=== PATIENT | male | born 1990 | race Caucasian/White ===

== ENCOUNTER 2016-04-12 15:00 | Inpatient (IN) | payer OTHER ==
[2016-04-12 18:59] VITALS: BMI 19.5
--- NOTE | 2016-04-12 18:59 | HP ---
COWS - Scale Resting Pulse: 1= [place] 81-100 Sweatin= Chills/Flushing Restless Observation: 3= Extraneous Movement Pupil Size: 0= Normal to Room Light Bone or Joint Aches: 2= Severe Diffuse Aches Runny Nose/ Eye Tearin= Runny Nose/Eyes GI Upset > 30mins: 3= Vomiting/Diarrhea Tremor Observation: 2= Slight Tremor Visible Yawning Observation: 0= None Anxiety or Irritability: 2=Irritable/Anxious Goose Flesh Skin: 0=Smooth Skin COWS Score: 16 Admission [facility] Chief Complaint: withdrawal sx Allergies/Adverse Reactions: Allergies Allergy/AdvReac Type Severity Reaction Status Date / Time No Known Allergies Allergy Verified 04/12/16 19:06 History of Present Illness: 25 years old male with long history of heroin nicotine dependence, denies medical issue has anxiety is admitted to detox Exam Limitations: No Limitations - Ebola screening Have you traveled outside of the country in the last 21 days: No Have you had contact with anyone from an Ebola affected area: No Do you have a fever: No - Review of Systems Constitutional: Chills, Loss of Appetite, Changes in sleep, Unexplained wgt Loss EENT: reports: No Symptoms Reported Respiratory: reports: No Symptoms reported Cardiac: reports: No Symptoms Reported GI: reports: Nausea, Poor Appetite, Poor Fluid Intake, Vomiting, Indigestion, Abdominal cramping : reports: No Symptoms Reported Musculoskeletal: reports: Back Pain, Joint Pain, Muscle Pain, Neck Pain Integumentary: reports: No Symptoms Reported Neuro: reports: Tremors Endocrine: reports: No Symptoms Reported Hematology: reports: No Symptoms Reported Psychiatric: reports: Judgement Intact, Orientated x3, Anxious, Depressed Other Systems: Reviewed and Negative Patient History - Patient Medical History Hx Anemia: No Hx Asthma: No Hx Chronic Obstructive Pulmonary Disease (COPD): No Hx Cancer: No Hx Cardiac Disorders: No Hx Congestive Heart Failure: No Hx Hypertension: No Hx Hypercholesterolemia: No Hx Pacemaker: No HX Cerebrovascular Accident: No Hx Seizures: No Hx Dementia: No Hx Diabetes: No Hx Gastrointestinal Disorders: Yes (gerd - protonix) Hx Liver Disease: No Hx Genitourinary Disorders: No Hx Sexually Transmitted Disorders: No Hx Renal Disease (ESRD): No Hx Thyroid Disease: No Hx Human Immunodeficiency Virus (HIV): No (LAST 11/16 NEGATIVE) Hx Hepatitis C: No Hx Depression: Yes (ANXTIETY) Hx Suicide Attempt: No Hx Bipolar Disorder: No Hx Schizophrenia: No - Patient Surgical History Past Surgical History: Yes Hx Neurologic Surgery: No Hx Cataract Extraction: No Hx Cardiac Surgery: No Hx Lung Surgery: No Hx Breast Surgery: No Hx Breast Biopsy: No Hx Abdominal Surgery: No Hx Appendectomy: No Hx Cholecystectomy: No Hx Genitourinary Surgery: No Hx Orthopedic Surgery: Yes (fx of L elbow 2014) Anesthesia Reaction: No - PPD History Previous Implant?: Yes Documented Results: Negative w/proof Implanted On Prior R Admission?: Yes Date: 04/04/15 Results: negative PPD to be Administered?: Yes - Smoking Cessation Smoking history: Current every day smoker Have you smoked in the past 12 months: Yes Aproximately how many cigarettes per day: 20 Cigars Per Day: 0 Hx Chewing Tobacco Use: No Initiated information on smoking cessation: Yes 'Breaking Loose' booklet given: 04/12/16 - Substance & Tx. History Hx Alcohol Use: No Hx Substance Use: Yes Substance Use Type: Heroin, Opiates Hx Substance Use Treatment: Yes - Substances Abused Heroin Route: Inhalation Frequency: Daily Amount used: 40 bags Age of first use: 18 Date of Last Use: 04/11/16 Family Disease History - Family Disease History Family History: Denies (adopted) Admission Physical Exam [facility] - Physical General Appearance: Yes: Appropriately Dressed, Moderate Distress, Thin, Tremorous, Irritable, Sweating, Anxious HEENTM: Yes: Hearing grossly Normal, Normal ENT Inspection, Normocephalic, Normal Voice Respiratory: Yes: Chest Non-Tender, Lungs Clear, Normal Breath Sounds, No Respiratory Distress, No Accessory Muscle Use Neck: Yes: Supple, Trachea in good position Breast: Yes: Breasts Symetrical Cardiology: Yes: Regular Rhythm, Regular Rate, S1, S2 Abdominal: Yes: Non Tender, Soft Genitourinary: Yes: Within Normal Limits Back: Yes: Normal Inspection Musculoskeletal: Yes: full range of Motion, Gait Steady, Back pain, Muscle Pain Extremities: Yes: Normal Inspection, Normal Range of Motion, Non-Tender, Tremors Neurological: Yes: Fully Oriented, Alert, Motor Strength 5/5, Normal Response, Depressed Affect Integumentary: Yes: Warm, Cl[place] Lymphatic: Yes: Within Normal Limits - Diagnostic (1) Nicotine dependence Current Visit: Yes Status: Acute Qualifiers: Nicotine product type: cigarettes Substance use status: uncomplicated Qualified Code(s): F17.210 - Nicotine dependence, cigarettes, uncomplicated (2) Opioid dependence with withdrawal Current Visit: Yes Status: Acute (3) GERD (gastroesophageal reflux disease) Current Visit: Yes Status: Acute Qualifiers: Esophagitis presence: without esophagitis Qualified Code(s): K21.9 - Gastro-esophageal reflux disease without esophagitis (4) Weight loss Current Visit: Yes Status: Acute (5) Depression Current Visit: Yes Status: Suspected Qualifiers: Depression Type: dysthymia Qualified Code(s): F34.1 - Dysthymic disorder Cleared for Admission [facility] - Detox or Rehab [facility] Level of Care: Medically Managed Detox Regimen/Protocol: Methadone [facility] Breath Alcohol Content Breath Alcohol Content: 0 Vital Signs - Vital Signs Vital Signs Refused: No Temperature: 96.9 F Temperature Source: Oral Pulse Rate: 87 Respiratory Rate: 18 Blood Pressure: 140/98 BP Location: Left Arm - Height Height: 6 ft 3 in - Weight Weight: 156 lb Weight Measurement Method: Standing Scale Body Mass Index (BMI): 19.5 - Bowel Function Bowel Movement: No Urine Drug Screen - Control Is Test Valid: Yes - Results Drug Screen Negative: No Urine Drug Screen Results: OPI-Opiates, MTD-Methadone, OXY-Oxycodone
[2016-04-12] MEDS ORDERED: METHADONE HCL 10 MG TABLET (FOR DETOX USE ONLY) PO ONE ×2 (19:04→23:00)
[2016-04-12] MEDS ORDERED: MAGNESIUM HYDROX 2400MG/30ML ORAL SUSPENSION 30 ML CUP PO PRN (19:04)
[2016-04-12] MEDS ORDERED: IBUPROFEN 400 MG TABLET (FP) PO PRN (19:04)
[2016-04-12] MEDS ORDERED: MENTHOL/PHENOL 1 EACH UD MM PRN (19:04)
[2016-04-12] MEDS ORDERED: ACETAMINOPHEN 325 MG TABLET (FP) PO PRN (19:04)
[2016-04-12] MEDS ORDERED: MAGNESIUM CITRATE 300 ML BOTTLE PO PRN (19:04)
[2016-04-12] MEDS ORDERED: LOPERAMIDE HCL 2 MG CAPSULE PO PRN (19:04)
[2016-04-12] MEDS ORDERED: P-EPHED 60MG/TRIPROLIDI 2.5MG TABLET PO PRN (19:04)
[2016-04-12] MEDS ORDERED: guaiFENesin/D-METHORPHAN HB 10 ML UNIT-DOSE CUPS PO PRN (19:04)
[2016-04-12] MEDS ORDERED: MAG HYDROX/AL HYDROX/SIMETH 30 ML UNIT-DOSE CUP PO PRN (19:04)
[2016-04-12] MEDS: diazePAM 5 MG TABLET PO PRN (20:27)
[2016-04-12] MEDS: CYCLOBENZAPRINE HCL 10 MG TABLET (FP) PO PRN (20:28)
[2016-04-12] MEDS: cloNIDine HCL 0.1 MG TABLET PO PRN (22:25)
[2016-04-12] MEDS: THIAMINE HCL 100 MG TABLET (FP) PO SCH (22:25)
[2016-04-12] MEDS: RANITIDINE HCL 150 MG TABLET (FP) PO SCH (22:25)
[2016-04-12 23:13] LABS: PH,URINE 6.5 (5.0-8.0); URINE APPEARANCE CLEAR; URINE BILIRUBIN NEGATIVE (NEGATIVE); URINE BLOOD NEGATIVE (NEGATIVE); URINE COLOR YELLOW; URINE GLUCOSE (UA) NEGATIVE (NEGATIVE); URINE KETONE TRACE (NEGATIVE); URINE LEUK ESTERASE NEGATIVE (NEGATIVE); URINE NITRITE NEGATIVE (NEGATIVE); URINE PROTEIN TRACE (NEGATIVE); URINE UROBILINOGEN 0.2 E.U/dl E.U./dl (0.2-1.0)
[2016-04-13] MEDS: diazePAM 5 MG TABLET PO PRN ×6 (01:00→22:16)
[2016-04-13] MEDS: diphenhydrAMINE HCL 50 MG CAPSULE PO PRN ×2 (01:01→22:15)
[2016-04-13] MEDS: CYCLOBENZAPRINE HCL 10 MG TABLET (FP) PO PRN ×2 (07:30→22:16)
[2016-04-13] MEDS ORDERED: METHADONE HCL 10 MG TABLET (FOR DETOX USE ONLY) PO ONE (10:00)
[2016-04-13 10:07] LABS: MCH 29.9 pg (25.7-33.7); MCHC 33.6 g/dl (32.0-35.9); MEAN CELL VOLUME 89.2 fl (80-96); MEAN PLT VOLUME 9.2 fl (7.5-11.1); PLATELET COUNT 195 K/MM3 (134-434); RDW 13.8 % (11.9-15.9); WHITE BLOOD COUNT 5.3 K/mm3 (4.0-10.0)
[2016-04-13 10:14] LABS: ALBUMIN 4.2 g/dl (3.4-5.0); ALK PHOS 60 U/L (45-117); ANION GAP 6 (8-16); BILIRUBIN,TOTAL 0.2 mg/dL (0.2-1.0); CALCIUM 9.2 mg/dL (8.5-10.1); CO2 30 mmol/L (21-32); GLUCOSE,RANDOM 93 mg/dL (74-106); SGOT/AST 10 U/L (15-37); SGPT/ALT 19 U/L (12-78); TOT PROT 6.9 g/dl (6.4-8.2)
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
[2016-04-13] MEDS: PRENATAL VITAMINS W/ FOLIC ACID TABLET (FP) PO SCH (10:47)
[2016-04-13] MEDS: cloNIDine HCL 0.1 MG TABLET PO PRN ×2 (10:48→22:15)
[2016-04-13] MEDS: RANITIDINE HCL 150 MG TABLET (FP) PO SCH ×2 (10:48→22:16)
[2016-04-13] MEDS: NICOTINE 21 MG/24 HOURS TOPICAL PATCH TD SCH (10:49)
[2016-04-13 10:50] LABS: HIV 1 & 2 AB NEGATIVE; HIV 1 AGp24 NEGATIVE
--- NOTE | 2016-04-13 13:41 | PN ---
[facility] COWS - Scale Resting Pulse: 1= [place] 81-100 Sweatin= Chills/Flushing Restless Observation: 1= Difficult to Sit Still Pupil Size: 1= Pupils >than Normal Bone or Joint Aches: 1= Mild Discomfort Runny Nose/ Eye Tearin= Nasal Congestion GI Upset > 30mins: 1= Stomach Cramp Tremor Observation of Outstretched Hands: 1= Tremor [place], Not Seen Yawning Observation: 0= None Anxiety or Irritability: 2=Irritable/Anxious Goose Flesh Skin: 0=Smooth Skin COWS Score: 10 BHS Progress Note (SOAP) Subjective: interrupted sleep, sweats , decreased appetite Objective: 04/13/16 13:40 Vital Signs Temperature 96.5 F L 04/13/16 06:51 Pulse Rate 77 04/13/16 06:51 Respiratory Rate 18 04/13/16 06:51 Blood Pressure 123/70 04/13/16 06:51 O2 Sat by Pulse Oximetry (%) Laboratory Tests 04/12/16 04/13/16 04/13/16 23:00 07:00 07:00 WBC 5.3 D RBC 4.76 Hgb 14.3 Hct 42.5 MCV 89.2 MCHC 33.6 RDW 13.8 Plt Count 195 MPV 9.2 Sodium 141 Potassium 4.7 Chloride 105 Carbon Dioxide 30 Anion Gap 6 L BUN 20 H D Creatinine 1.0 D Creat Clearance w eGFR > 60 Random Glucose 93 Calcium 9.2 Total Bilirubin 0.2 D AST 10 L D ALT 19 D Alkaline Phosphatase 60 Total Protein 6.9 Albumin 4.2 Urine Color Yellow Urine Appearance Clear Urine pH 6.5 D Ur Specific [place] 1.015 Urine Protein Trace H Urine Glucose (UA) Negative Urine Ketones Trace H Urine Blood Negative Urine Nitrite Negative Urine Bilirubin Negative Urine Urobilinogen 0.2 e.u/dl Ur Leukocyte Esterase Negative RPR Titer HIV 1&2 Antibody Screen HIV P24 Antigen 04/13/16 04/13/16 07:00 07:00 WBC RBC Hgb Hct MCV MCHC RDW Plt Count MPV Sodium Potassium Chloride Carbon Dioxide Anion Gap BUN Creatinine Creat Clearance w eGFR Random Glucose Calcium Total Bilirubin AST ALT Alkaline Phosphatase Total Protein Albumin Urine Color Urine Appearance Urine pH Ur Specific [place] Urine Protein Urine Glucose (UA) Urine Ketones Urine Blood Urine Nitrite Urine Bilirubin Urine Urobilinogen Ur Leukocyte Esterase RPR Titer Nonreactive HIV 1&2 Antibody Screen Negative HIV P24 Antigen Negative pt aox3 in nad ambulating Assessment: 04/13/16 13:41 withdrawl sx's Plan: continue detox increase fluids ensure bid
[2016-04-13] MEDS ORDERED: ZOLPIDEM TARTRATE 10 MG TABLET (PARK CARE ONLY) PO PRN (22:00)
[2016-04-13] MEDS: THIAMINE HCL 100 MG TABLET (FP) PO SCH (22:16)
[2016-04-13] MEDS: NICOTINE POLACRILEX 2 MG GUM BC PRN (22:20)
[2016-04-14] MEDS: diazePAM 5 MG TABLET PO PRN ×3 (02:15→10:49)
[2016-04-14] MEDS: NICOTINE POLACRILEX 2 MG GUM BC PRN (03:17)
[2016-04-14] MEDS ORDERED: METHADONE HCL 5 MG TABLET (FOR DETOX USE ONLY) PO ONE (10:00)
--- NOTE | 2016-04-14 10:17 | EKG ---
Test Reason : Blood Pressure : / mmHG Vent. Rate : 067 BPM Atrial Rate : 067 BPM P-R Int : 154 ms QRS Dur : 086 ms QT Int : 420 ms P-R-T Axes : 076 080 065 degrees QTc Int : 443 ms NORMAL SINUS RHYTHM NORMAL ECG NO PREVIOUS ECGS AVAILABLE Confirmed by YADIRA ZHU, ELBA ([id number]) on 04/14/2016 10:17:08 AM Referred By: Confirmed By:ELBA MAY MD
[2016-04-14 10:20] VITALS: BP 95/69; PULSE 114; TEMP 97.9
[2016-04-14] MEDS: NICOTINE 21 MG/24 HOURS TOPICAL PATCH TD SCH (10:47)
[2016-04-14] MEDS: RANITIDINE HCL 150 MG TABLET (FP) PO SCH (10:48)
[2016-04-14] MEDS: PRENATAL VITAMINS W/ FOLIC ACID TABLET (FP) PO SCH (10:48)
--- NOTE | 2016-04-14 11:55 | PN ---
[facility] CIWA - CIWA Score Nausea/Vomitin-Mild Nausea/No Vomiting Muscle Tremors: 1-None Visible, but [place] Anxiety: 3 Agitation: 3 Paroxysmal Sweats: 2 Orientation: 0-Oriented Tacttile Disturbances: 1-Very Mild Itch/Numbness Auditory Disturbances: 0-None Visual Disturbances: 0-None Headache: 0-None Present CIWA-Ar Total Score: 11 BHS Progress Note (SOAP) Subjective: interrupted sleep, sweats , nausea Objective: 04/14/16 11:52 Vital Signs Temperature 97.9 F 04/14/16 10:19 Pulse Rate 114 H 04/14/16 10:19 Respiratory Rate 20 04/14/16 10:19 Blood Pressure 95/69 04/14/16 10:19 O2 Sat by Pulse Oximetry (%) Laboratory Tests 04/12/16 04/13/16 04/13/16 23:00 07:00 07:00 WBC 5.3 D RBC 4.76 Hgb 14.3 Hct 42.5 MCV 89.2 MCHC 33.6 RDW 13.8 Plt Count 195 MPV 9.2 Sodium 141 Potassium 4.7 Chloride 105 Carbon Dioxide 30 Anion Gap 6 L BUN 20 H D Creatinine 1.0 D Creat Clearance w eGFR > 60 Random Glucose 93 Calcium 9.2 Total Bilirubin 0.2 D AST 10 L D ALT 19 D Alkaline Phosphatase 60 Total Protein 6.9 Albumin 4.2 Urine Color Yellow Urine Appearance Clear Urine pH 6.5 D Ur Specific [place] 1.015 Urine Protein Trace H Urine Glucose (UA) Negative Urine Ketones Trace H Urine Blood Negative Urine Nitrite Negative Urine Bilirubin Negative Urine Urobilinogen 0.2 e.u/dl Ur Leukocyte Esterase Negative RPR Titer Hepatitis C Antibody HIV 1&2 Antibody Screen HIV P24 Antigen 04/13/16 04/13/16 04/13/16 07:00 07:00 07:00 WBC RBC Hgb Hct MCV MCHC RDW Plt Count MPV Sodium Potassium Chloride Carbon Dioxide Anion Gap BUN Creatinine Creat Clearance w eGFR Random Glucose Calcium Total Bilirubin AST ALT Alkaline Phosphatase Total Protein Albumin Urine Color Urine Appearance Urine pH Ur Specific [place] Urine Protein Urine Glucose (UA) Urine Ketones Urine Blood Urine Nitrite Urine Bilirubin Urine Urobilinogen Ur Leukocyte Esterase RPR Titer Nonreactive Hepatitis C Antibody <0.1 HIV 1&2 Antibody Screen Negative HIV P24 Antigen Negative pt aox3 in nad, ambulating Assessment: 04/14/16 11:54 withdrawl sx's Plan: cont. detox increase fluids vistaril 50mg q6h
[2016-04-14] MEDS ORDERED: hydrOXYzine PAMOATE 50 MG CAPSULE (FP) PO SCH (14:00)
[2016-04-15] MEDS ORDERED: METHADONE HCL 5 MG TABLET (FOR DETOX USE ONLY) PO ONE (10:00)
[2016-04-16] MEDS ORDERED: METHADONE HCL 10 MG TABLET (FOR DETOX USE ONLY) PO ONE (10:00)
[2016-04-17] MEDS ORDERED: METHADONE HCL 5 MG TABLET (FOR DETOX USE ONLY) PO ONE (06:00)
== END 2016-04-14 12:54 | disposition left against medical advice (07) | DRG 894 ==
LOC: YASAS 15:00 → Y6N 19:20
PROVIDERS: ADMIT Internal Medicine Addiction Medicine; ATTEND Internal Medicine Addiction Medicine
PROC: HZ2ZZZZ Detoxification Services for Substance Abuse Treatment (ICD-10-PCS; principal; 2016-04-12)
DX: F11.23 Opioid dependence with withdrawal (principal); F19.282 Other psychoactive substance dependence with psychoactive substance-induced sleep disorder; F17.210 Nicotine dependence, cigarettes, uncomplicated; F19.24 Other psychoactive substance dependence with psychoactive substance-induced mood disorder; F43.29 Adjustment disorder with other symptoms; K21.9 Gastro-esophageal reflux disease without esophagitis; Z87.898 Personal history of other specified conditions
CPT/HCPCS: 36415; 80053; 81003; 85027; 86593; 86803; 87389; 93005; 93010

== ENCOUNTER 2017-04-22 08:35 | Inpatient (IN) | payer OTHER ==
[2017-04-22 10:52] VITALS: BMI 20.7
[2017-04-22] MEDS ORDERED: P-EPHED 60MG/TRIPROLIDI 2.5MG TABLET PO PRN (11:57)
[2017-04-22] MEDS ORDERED: MAGNESIUM CITRATE 300 ML BOTTLE PO PRN (11:57)
[2017-04-22] MEDS ORDERED: guaiFENesin/D-METHORPHAN HB 10 ML UNIT-DOSE CUPS PO PRN (11:57)
[2017-04-22] MEDS ORDERED: NICOTINE POLACRILEX 2 MG GUM BUC PRN (11:57)
[2017-04-22] MEDS ORDERED: IBUPROFEN 400 MG TABLET (FP) PO PRN (11:57)
[2017-04-22] MEDS ORDERED: MENTHOL/PHENOL 1 EACH UD MM PRN (11:57)
[2017-04-22] MEDS ORDERED: MAGNESIUM HYDROX 2400MG/30ML ORAL SUSPENSION 30 ML CUP PO PRN (11:57)
[2017-04-22] MEDS ORDERED: LOPERAMIDE HCL 2 MG CAPSULE PO PRN (11:57)
[2017-04-22] MEDS ORDERED: ACETAMINOPHEN 325 MG TABLET (FP) PO PRN (11:57)
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
[2017-04-22] MEDS ORDERED: diazePAM 5 MG TABLET PO ONE (12:25)
[2017-04-22] MEDS ORDERED: METHADONE HCL 10 MG TABLET (FOR DETOX USE ONLY) PO ONE ×2 (12:30→23:00)
[2017-04-22] MEDS: PANTOPRAZOLE 40 MG TABLET (FP) PO SCH (13:39)
[2017-04-22] MEDS: diazePAM 5 MG TABLET PO SCH ×2 (13:39→22:35)
[2017-04-22] MEDS: NICOTINE 21 MG/24 HOURS TOPICAL PATCH TD SCH (13:43)
[2017-04-22] MEDS: MAG HYDROX/AL HYDROX/SIMETH 30 ML UNIT-DOSE CUP PO PRN (15:04)
--- NOTE | 2017-04-22 15:14 | EKG ---
Test Reason : Blood Pressure : / mmHG Vent. Rate : 084 BPM Atrial Rate : 084 BPM P-R Int : 146 ms QRS Dur : 084 ms QT Int : 386 ms P-R-T Axes : 076 079 061 degrees QTc Int : 456 ms NORMAL SINUS RHYTHM NORMAL ECG WHEN COMPARED WITH ECG OF 12-APR-2016 20:22, NO SIGNIFICANT CHANGE WAS FOUND Confirmed by MD WILLIAM, RICHARD ([id number]) on 04/22/2017 3:14:22 PM Referred By: Confirmed By:RICHARD THOMAS MD
[2017-04-22] MEDS: diazePAM 5 MG TABLET PO PRN (17:15)
[2017-04-22] MEDS: THIAMINE HCL 100 MG TABLET (FP) PO SCH (22:35)
[2017-04-23] MEDS: diazePAM 5 MG TABLET PO PRN ×6 (00:23→23:18)
[2017-04-23] MEDS: hydrOXYzine PAMOATE 50 MG CAPSULE (FP) PO PRN (03:07)
[2017-04-23] MEDS: diazePAM 5 MG TABLET PO SCH ×3 (07:52→22:10)
[2017-04-23 09:56] LABS: HEMATOCRIT 48.8 % (35.4-49); HEMOGLOBIN 16.2 GM/dL (11.7-16.9); MCH 29.9 pg (25.7-33.7); MCHC 33.1 g/dl (32.0-35.9); MEAN CELL VOLUME 90.1 fl (80-96); MEAN PLT VOLUME 9.6 fl (7.5-11.1); PLATELET COUNT 210 K/MM3 (134-434); RBC 5.42 M/mm3 (4.00-5.60); RDW 13.6 % (11.9-15.9); WHITE BLOOD COUNT 8.4 K/mm3 (4.0-10.0)
[2017-04-23] MEDS ORDERED: METHADONE HCL 10 MG TABLET (FOR DETOX USE ONLY) PO SCH (10:00)
[2017-04-23 10:07] LABS: CHLORIDE 104 mmol/L (98-107); SODIUM 139 mmol/L (136-145)
[2017-04-23] MEDS: NICOTINE 21 MG/24 HOURS TOPICAL PATCH TD SCH (10:09)
[2017-04-23] MEDS: PRENATAL VITAMINS W/ FOLIC ACID TABLET (FP) PO SCH (10:09)
[2017-04-23] MEDS: PANTOPRAZOLE 40 MG TABLET (FP) PO SCH (10:09)
[2017-04-23 10:21] LABS: ALBUMIN 4.9 g/dl (3.4-5.0); ALK PHOS 61 U/L (45-117); ANION GAP 9 (8-16); BILIRUBIN,TOTAL 0.5 mg/dL (0.2-1.0); BLOOD UREA NITROGEN 17 mg/dL (7-18); CALCIUM 9.1 mg/dL (8.5-10.1); CO2 26 mmol/L (21-32); GLUCOSE,RANDOM 131 mg/dL (74-106); SGOT/AST 11 U/L (15-37); SGPT/ALT 18 U/L (12-78); TOT PROT 8.4 g/dl (6.4-8.2)
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
--- NOTE | 2017-04-23 16:31 | PN ---
S CIWA - CIWA Score Nausea/Vomitin Muscle Tremors: 3 Anxiety: 5 Agitation: 4-Moderately Restless Paroxysmal Sweats: 3 Orientation: 0-Oriented Tacttile Disturbances: 2-Mild Itch/Numbness/Burn Auditory Disturbances: 0-None Visual Disturbances: 0-None Headache: 0-None Present CIWA-Ar Total Score: 19 BHS COWS - Scale Resting Pulse: 1= [place] 81-100 Sweatin= Chills/Flushing Restless Observation: 1= Difficult to Sit Still Pupil Size: 0= Normal to Room Light Bone or Joint Aches: 2= Severe Diffuse Aches Runny Nose/ Eye Tearin= None GI Upset > 30mins: 2= Nausea/Diarrhea Tremor Observation of Outstretched Hands: 2= Slight Tremor Visible Yawning Observation: 0= None Anxiety or Irritability: 4=Extreme Anxiety Goose Flesh Skin: 3=Piloerection COWS Score: 16 BHS Progress Note (SOAP) Subjective: Sweating, Tremors, Nausea, Anxious, Body Aches. Objective: PT. A & O X 3, OBSERVED AMBULATING ON UNIT. NO ACUTE DISTRESS. 04/23/17 16:29 Vital Signs Temperature 97.0 F L 04/23/17 13:16 Pulse Rate 84 04/23/17 13:16 Respiratory Rate 18 04/23/17 13:16 Blood Pressure 119/83 04/23/17 13:16 O2 Sat by Pulse Oximetry (%) Laboratory Tests 04/22/17 04/23/17 04/23/17 12:30 06:10 08:20 WBC 8.4 D RBC 5.42 Hgb 16.2 D Hct 48.8 MCV 90.1 MCH 29.9 MCHC 33.1 RDW 13.6 Plt Count 210 MPV 9.6 Sodium 139 Potassium 4.0 Chloride 104 Carbon Dioxide 26 Anion Gap 9 BUN 17 Creatinine 1.0 Creat Clearance w eGFR > 60 Random Glucose 131 H D Calcium 9.1 Total Bilirubin 0.5 D AST 11 L ALT 18 Alkaline Phosphatase 61 Total Protein 8.4 H D Albumin 4.9 RPR Titer HIV 1&2 Antibody Screen Negative HIV P24 Antigen Negative 04/23/17 08:20 WBC RBC Hgb Hct MCV MCH MCHC RDW Plt Count MPV Sodium Potassium Chloride Carbon Dioxide Anion Gap BUN Creatinine Creat Clearance w eGFR Random Glucose Calcium Total Bilirubin AST ALT Alkaline Phosphatase Total Protein Albumin RPR Titer Nonreactive HIV 1&2 Antibody Screen HIV P24 Antigen LABS NOTED. UA RESULTS PENDING. 04/23/17 16:30 Assessment: 04/23/17 16:29 WITHDRAWAL SYMPTOMS. Plan: CONTINUE DETOX. INCREASE DAILY PO FLUID INTAKE.
[2017-04-23] MEDS: THIAMINE HCL 100 MG TABLET (FP) PO SCH (22:11)
[2017-04-23] MEDS: ZOLPIDEM TARTRATE 5 MG TABLET PO PRN (22:11)
[2017-04-24] MEDS: diazePAM 5 MG TABLET PO PRN ×5 (02:42→20:23)
[2017-04-24] MEDS: hydrOXYzine PAMOATE 50 MG CAPSULE (FP) PO PRN (02:42)
[2017-04-24] MEDS: METHADONE HCL 5 MG TABLET (FOR DETOX USE ONLY) PO SCH (10:21)
[2017-04-24] MEDS: diazePAM 5 MG TABLET PO SCH ×2 (10:21→22:21)
[2017-04-24] MEDS: PANTOPRAZOLE 40 MG TABLET (FP) PO SCH (10:21)
[2017-04-24] MEDS: NICOTINE 21 MG/24 HOURS TOPICAL PATCH TD SCH (10:21)
[2017-04-24] MEDS: PRENATAL VITAMINS W/ FOLIC ACID TABLET (FP) PO SCH (10:21)
--- NOTE | 2017-04-24 15:39 | PN ---
S CIWA - CIWA Score Nausea/Vomitin Muscle Tremors: 4-Moderate,w/Arms Extend Anxiety: 4-Mod. Anxious/Guarded Agitation: 4-Moderately Restless Paroxysmal Sweats: 3 Orientation: 0-Oriented Tacttile Disturbances: 0-None Auditory Disturbances: 0-None Visual Disturbances: 0-None Headache: 2-Mild CIWA-Ar Total Score: 20 BHS COWS - Scale Resting Pulse: 1= [place] 81-100 Sweatin= Chills/Flushing Restless Observation: 3= Extraneous Movement Pupil Size: 0= Normal to Room Light Bone or Joint Aches: 2= Severe Diffuse Aches Runny Nose/ Eye Tearin= Runny Nose/Eyes GI Upset > 30mins: 3= Vomiting/Diarrhea Tremor Observation of Outstretched Hands: 2= Slight Tremor Visible Yawning Observation: 0= None Anxiety or Irritability: 2=Irritable/Anxious Goose Flesh Skin: 0=Smooth Skin COWS Score: 16 BHS Progress Note (SOAP) Subjective: Diarrhea, tremor, chills, poor appetite, interrupted sleep, anxious, irritable, headache Objective: 04/24/17 15:37 Last Vital Signs Temp Pulse Resp BP Pulse Ox 98.0 F 98 H 16 132/87 04/24/17 13:22 04/24/17 13:22 04/24/17 13:22 04/24/17 13:22 Laboratory Tests 04/22/17 04/23/17 04/23/17 12:30 06:10 08:20 WBC 8.4 D RBC 5.42 Hgb 16.2 D Hct 48.8 MCV 90.1 MCH 29.9 MCHC 33.1 RDW 13.6 Plt Count 210 MPV 9.6 Sodium 139 Potassium 4.0 Chloride 104 Carbon Dioxide 26 Anion Gap 9 BUN 17 Creatinine 1.0 Creat Clearance w eGFR > 60 Random Glucose 131 H D Calcium 9.1 Total Bilirubin 0.5 D AST 11 L ALT 18 Alkaline Phosphatase 61 Total Protein 8.4 H D Albumin 4.9 RPR Titer HIV 1&2 Antibody Screen Negative HIV P24 Antigen Negative 04/23/17 08:20 WBC RBC Hgb Hct MCV MCH MCHC RDW Plt Count MPV Sodium Potassium Chloride Carbon Dioxide Anion Gap BUN Creatinine Creat Clearance w eGFR Random Glucose Calcium Total Bilirubin AST ALT Alkaline Phosphatase Total Protein Albumin RPR Titer Nonreactive HIV 1&2 Antibody Screen HIV P24 Antigen Labs noted: serum glucose 131 Assessment: 04/24/17 15:38 Withdrawal symptoms Noted with hyperglycemia Plan: Continue detox Hyperglycemia: repeat fasting glucose, send HbA1c
[2017-04-24] MEDS: MAG HYDROX/AL HYDROX/SIMETH 30 ML UNIT-DOSE CUP PO PRN (20:52)
[2017-04-24] MEDS: ZOLPIDEM TARTRATE 5 MG TABLET PO PRN (22:21)
[2017-04-24] MEDS: THIAMINE HCL 100 MG TABLET (FP) PO SCH (22:21)
[2017-04-25] MEDS: diazePAM 5 MG TABLET PO PRN ×2 (00:37→06:14)
[2017-04-25 06:23] VITALS: BP 144/84; PULSE 85; TEMP 97.4
--- NOTE | 2017-04-25 10:44 | PN ---
[facility] Progress Note Note: PT APPROACHED THIS MICA PASTER WHILE ATTENDING TO DISCHARGES OF THE DAY. PT DEMANDED ANGRILY THAT TODAY IS HIS DISCHARGE DAY. WHEN ASKED WHY HE IS LEAVING PREMATURELY HE RESPONDED "I'M DISCHARGING MYSELF TODAY. I'M GOING SOMEWHERE ELSE NOT HERE BECAUSE YOU PEOPLE ARE NOT MEDICATING ME RIGHT"." I USE A BUNDLE A DAY.............". THIS INSTANCE WAS THE FIRST INTERACTION WITH THIS PATIENT. PER PREVIOUS SHIFT NURSING NOTES, PT WAS SPOKEN TO BY SECURITY FOR DISRUPTIVE BEHAVIOR ON THE UNIT. THIS MICA PASTER CALMLY TRIED TO REASON WITH PATIENT TO ENCOURAGE ADHERENCE AND MANAGEMENT OF HIS DETOX TREATMENT BUT PT WAS VERY LOUD,GAVE NO CHANCE TO LISTEN TO ANY SUGGESTIONS ON OTHER TREATMENTS AVAILABLE TO PATIENT. PT WAS SPOKEN TO AND ENCOURAGED TO STAY BY THE COUNSELING ORTHOPEDIC PHYSICIAN, ISAC CRUZ AND COUNSELOR JOHN. CUSTOMER SERVICE CORRESPONDENCE CLERK AND CONTRACT ADMIN ALSO SPOKE TO PATIENT THIS MORNING BUT PT MAINTAINED HE IS SIGNING OUT AGAINST MEDICAL ADVICE. PLAN CONTINUE TO ENCOURAGE TX AND MONITOR PATIENT.
--- NOTE | 2017-04-25 10:48 | DS ---
[facility] Detox Discharge Summary Admission Date: 04/22/17 Discharge Date: 04/25/17 - History Present History: Opioid Dependence, Sedative Dependence Additional Comments: PT DECLINED TO CONTINUE WITH DETOX. ALERT O X 3. NAD. Pertinent Past History: GERD WEIGHT LOSS - Physical Exam Results Vital Signs: Vital Signs Temperature 97.4 F L 04/25/17 06:23 Pulse Rate 85 04/25/17 06:23 Respiratory Rate 18 04/25/17 06:23 Blood Pressure 144/84 04/25/17 06:23 O2 Sat by Pulse Oximetry (%) Pertinent Admission Physical Exam Findings: WITHDRAWAL SX Laboratory Last Values WBC 8.4 K/mm3 (4.0-10.0) D 04/23/17 06:10 RBC 5.42 M/mm3 (4.00-5.60) 04/23/17 06:10 Hgb 16.2 GM/dL (11.7-16.9) D 04/23/17 06:10 Hct 48.8 % (35.4-49) 04/23/17 06:10 MCV 90.1 fl (80-96) 04/23/17 06:10 MCH 29.9 pg (25.7-33.7) 04/23/17 06:10 MCHC 33.1 g/dl (32.0-35.9) 04/23/17 06:10 RDW 13.6 % (11.9-15.9) 04/23/17 06:10 Plt Count 210 K/MM3 (134-434) 04/23/17 06:10 MPV 9.6 fl (7.5-11.1) 04/23/17 06:10 Sodium 139 mmol/L (136-145) 04/23/17 08:20 Potassium 4.0 mmol/L (3.5-5.1) 04/23/17 08:20 Chloride 104 mmol/L (98-107) 04/23/17 08:20 Carbon Dioxide 26 mmol/L (21-32) 04/23/17 08:20 Anion Gap 9 (8-16) 04/23/17 08:20 BUN 17 mg/dL (7-18) 04/23/17 08:20 Creatinine 1.0 mg/dL (0.7-1.3) 04/23/17 08:20 Creat Clearance w eGFR > 60 (>60) 04/23/17 08:20 Random Glucose 131 mg/dL (74-106) H D 04/23/17 08:20 Fasting Glucose 81 mg/dL (70-105) 04/25/17 07:00 Hemoglobin A1c % 5.5 % (4.8-6.0) 04/25/17 07:00 Calcium 9.1 mg/dL (8.5-10.1) 04/23/17 08:20 Total Bilirubin 0.5 mg/dL (0.2-1.0) D 04/23/17 08:20 AST 11 U/L (15-37) L 04/23/17 08:20 ALT 18 U/L (12-78) 04/23/17 08:20 Alkaline Phosphatase 61 U/L (45-117) 04/23/17 08:20 Total Protein 8.4 g/dl (6.4-8.2) H D 04/23/17 08:20 Albumin 4.9 g/dl (3.4-5.0) 04/23/17 08:20 RPR Titer Nonreactive (NONREACTIVE) 04/23/17 08:20 HIV 1&2 Antibody Screen Negative 04/22/17 12:30 HIV P24 Antigen Negative 04/22/17 12:30 HGB A1C WNL - Treatment Hospital Course: Discharged Condition Good Patient has Accepted a Rehab Referral to: REFUSED - Medication Discharge Medications: Ambulatory Orders Esomeprazole Magnesium [Nexium 24Hr] 40 mg PO DAILY 08/12/15 - Diagnosis (1) Nicotine dependence Status: Acute Qualifiers: Nicotine product type: cigarettes Substance use status: uncomplicated Qualified Code(s): F17.210 - Nicotine dependence, cigarettes, uncomplicated (2) Opioid dependence with withdrawal Status: Acute (3) Sedative, hypnotic or anxiolytic dependence with withdrawal, uncomplicated Status: Acute (4) GERD (gastroesophageal reflux disease) Status: Chronic Qualifiers: Esophagitis presence: without esophagitis Qualified Code(s): K21.9 - Gastro -esophageal reflux disease without esophagitis (5) Weight loss Status: Acute (6) Cannabis dependence Status: Acute - AMA Did Patient Leave Against Medical Advice: Yes (AMA)
[2017-04-25] MEDS: METHADONE HCL 5 MG TABLET (FOR DETOX USE ONLY) PO SCH (10:53)
[2017-04-25] MEDS: PANTOPRAZOLE 40 MG TABLET (FP) PO SCH (10:53)
[2017-04-25] MEDS: diazePAM 5 MG TABLET PO SCH (10:53)
[2017-04-25] MEDS: NICOTINE 21 MG/24 HOURS TOPICAL PATCH TD SCH (10:53)
[2017-04-25] MEDS: PRENATAL VITAMINS W/ FOLIC ACID TABLET (FP) PO SCH (10:53)
[2017-04-26] MEDS ORDERED: diazePAM 5 MG TABLET PO SCH (10:00)
[2017-04-26] MEDS ORDERED: METHADONE HCL 10 MG TABLET (FOR DETOX USE ONLY) PO SCH (10:00)
[2017-04-27] MEDS ORDERED: METHADONE HCL 5 MG TABLET (FOR DETOX USE ONLY) PO SCH (06:00)
== END 2017-04-25 09:50 | disposition left against medical advice (07) | DRG 770 ==
LOC: YASAS 08:35 → Y3N 12:01
PROVIDERS: ADMIT Internal Medicine; ATTEND Internal Medicine
PROC: HZ2ZZZZ Detoxification Services for Substance Abuse Treatment (ICD-10-PCS; principal; 2017-04-22)
DX: F11.23 Opioid dependence with withdrawal (principal); F10.230 Alcohol dependence with withdrawal, uncomplicated; F13.230 Sedative, hypnotic or anxiolytic dependence with withdrawal, uncomplicated; F12.20 Cannabis dependence, uncomplicated; F90.9 Attention-deficit hyperactivity disorder, unspecified type; F33.9 Major depressive disorder, recurrent, unspecified; G47.00 Insomnia, unspecified; R73.9 Hyperglycemia, unspecified; K21.9 Gastro-esophageal reflux disease without esophagitis; Z86.69 Personal history of other diseases of the nervous system and sense organs
CPT/HCPCS: 36415; 80053; 82947; 83036; 85027; 86593; 87389; 93005; 93010

== ENCOUNTER 2018-02-07 15:59 | Inpatient (IN) | payer OTHER ==
[2018-02-07 17:58] VITALS: BMI 22.5
--- NOTE | 2018-02-07 19:33 | HP ---
COWS - Scale Resting Pulse: 1= [place] 81-100 Sweatin= Chills/Flushing Restless Observation: 1= Difficult to Sit Still Pupil Size: 0= Normal to Room Light Bone or Joint Aches: 2= Severe Diffuse Aches Runny Nose/ Eye Tearin= Runny Nose/Eyes GI Upset > 30mins: 2= Nausea/Diarrhea Tremor Observation: 0= None Yawning Observation: 0= None Anxiety or Irritability: 2=Irritable/Anxious Goose Flesh Skin: 0=Smooth Skin COWS Score: 11 Admission ROS S - HPI Allergies/Adverse Reactions: Allergies Allergy/AdvReac Type Severity Reaction Status Date / Time tramadol Allergy Verified 02/07/18 19:28 trazodone AdvReac Verified 02/07/18 19:28 History of Present Illness: pt here requesting detox from heroin use , first age of use 8 years ago, current daily use 2 -3 bundles/day IVDU in [place] , needles from [facility] , denies sharing, + re-using, denies abscess , + od x 2 , most recently1 yr ago , Narcan by police . intermittent sobriety x 6 months , in outpt program [facility] in [place] . Latest use - this morning 1 bag . utox + fen , mop pmhx : gerd pshx : left elbow ORIF and hardware removal 2014 psych : denies tobacco : 1 ppd , requesting nrt w/ patch and gum Shx : lives w/ parents, employed in construction . - Ebola screening Have you traveled outside of the country in the last 21 days: No Have you had contact with anyone from an Ebola affected area: No Have you been sick,other than usual withdrawal symptoms: No Do you have a fever: No - Review of Systems Constitutional: See HPI EENT: reports: Tearing, Nose Congestion Respiratory: reports: No Symptoms reported Cardiac: reports: No Symptoms Reported GI: reports: Nausea : reports: No Symptoms Reported Musculoskeletal: reports: No Symptoms Reported Integumentary: reports: No Symptoms Reported Neuro: reports: Headache Endocrine: reports: No Symptoms Reported Hematology: reports: No Symptoms Reported Psychiatric: reports: Judgement Intact, Mood/Affect Appropiate, Orientated x3, Agitated Patient History - Patient Medical History Hx Anemia: No Hx Asthma: No Hx Chronic Obstructive Pulmonary Disease (COPD): No Hx Cancer: No Hx Cardiac Disorders: No Hx Congestive Heart Failure: No Hx Hypertension: No Hx Hypercholesterolemia: No Hx Pacemaker: No HX Cerebrovascular Accident: No Hx Seizures: No (not sure, probable seizure?) Hx Dementia: No Hx Diabetes: No Hx Gastrointestinal Disorders: Yes (gerd) Hx Liver Disease: No Hx Genitourinary Disorders: No Hx Sexually Transmitted Disorders: No Hx Renal Disease (ESRD): No Hx Thyroid Disease: No Hx Human Immunodeficiency Virus (HIV): No Hx Hepatitis C: No Hx Depression: Yes Hx Suicide Attempt: No Hx Bipolar Disorder: No Hx Schizophrenia: No - Patient Surgical History Past Surgical History: Yes Hx Neurologic Surgery: No Hx Cataract Extraction: No Hx Cardiac Surgery: No Hx Lung Surgery: No Hx Breast Surgery: No Hx Breast Biopsy: No Hx Abdominal Surgery: No Hx Appendectomy: No Hx Cholecystectomy: No Hx Genitourinary Surgery: No Hx Orthopedic Surgery: Yes (fx of L elbow 2014, ORIF) Anesthesia Reaction: No - PPD History Date: 04/24/17 Results: negative - Smoking Cessation Smoking history: Current every day smoker Have you smoked in the past 12 months: Yes Aproximately how many cigarettes per day: 20 Cigars Per Day: 0 Hx Chewing Tobacco Use: No Initiated information on smoking cessation: No Admission Physical Exam BHS - Vital Signs Vital Signs: Vital Signs - 24 hr 02/07/18 17:54 Temperature 97.7 F Pulse Rate 81 Respiratory 18 Rate Blood Pressure 143/80 - Physical General Appearance: Yes: Nourished, Appropriately Dressed, Mild Distress HEENTM: Yes: EOMI, Hearing grossly Normal, Normal ENT Inspection, Normocephalic , Normal Voice, ED, Pharynx Normal Respiratory: Yes: Chest Non-Tender, Lungs Clear, Normal Breath Sounds, No Respiratory Distress, No Accessory Muscle Use Neck: Yes: No masses,lesions,Nodules, Trachea in good position Cardiology: Yes: Regular Rhythm, Regular Rate Abdominal: Yes: Within Normal Limits, Normal Bowel Sounds, Non Tender, Flat, Soft Genitourinary: Yes: Within Normal Limits Back: Yes: Within Normal Limits, Normal Inspection Musculoskeletal: Yes: Within Normal Limits, full range of Motion, Gait Steady, Pelvis Stable Extremities: Yes: Normal Capillary Refill, Normal Inspection, Normal Range of Motion, Non-Tender Neurological: Yes: Fully Oriented, Alert, Motor Strength 5/5, Normal Mood/Affect , Normal Response Integumentary: Yes: Normal Color, Dry, Warm, Track Wood Lymphatic: Yes: Within Normal Limits - Diagnostic (1) Nicotine dependence Current Visit: No Status: Acute Qualifiers: Nicotine product type: cigarettes Substance use status: in withdrawal Qualified Code(s): F17.213 - Nicotine dependence, cigarettes, with withdrawal (2) Opioid dependence with withdrawal Current Visit: No Status: Acute BHS Breath Alcohol Content Breath Alcohol Content: 0 Urine Drug Screen - Results Drug Screen Negative: No Urine Drug Screen Results: OPI-Opiates, FEN-Fentanyl
[2018-02-07] MEDS ORDERED: MAGNESIUM CITRATE 300 ML BOTTLE PO PRN (19:36)
[2018-02-07] MEDS ORDERED: guaiFENesin/D-METHORPHAN HB 10 ML UNIT-DOSE CUPS PO PRN (19:36)
[2018-02-07] MEDS ORDERED: IBUPROFEN 400 MG TABLET (FP) PO PRN (19:36)
[2018-02-07] MEDS ORDERED: P-EPHED 60MG/TRIPROLIDI 2.5MG TABLET PO PRN (19:36)
[2018-02-07] MEDS ORDERED: MAGNESIUM HYDROX 2400MG/30ML ORAL SUSPENSION 30 ML CUP PO PRN (19:36)
[2018-02-07] MEDS ORDERED: ACETAMINOPHEN 325 MG TABLET (FP) PO PRN (19:36)
[2018-02-07] MEDS ORDERED: MENTHOL/PHENOL 1 EACH UD MM PRN (19:36)
[2018-02-07] MEDS: MAG HYDROX/AL HYDROX/SIMETH 30 ML UNIT-DOSE CUP PO PRN (22:00)
[2018-02-07] MEDS: THIAMINE HCL 100 MG TABLET (FP) PO SCH (22:00)
[2018-02-07] MEDS ORDERED: MELATONIN 5 MG TABLETS PO PRN (22:00)
[2018-02-07] MEDS ORDERED: METHADONE HCL 10 MG TABLET (FOR DETOX USE ONLY) PO ONE (23:00)
[2018-02-08 01:36] LABS: URINE APPEARANCE CLEAR; URINE BILIRUBIN NEGATIVE (<2.0 mg/dL); URINE COLOR YELLOW; URINE GLUCOSE (UA) NEGATIVE (NEGATIVE); URINE KETONE NEGATIVE (NEGATIVE); URINE LEUK ESTERASE NEGATIVE (NEGATIVE); URINE NITRITE NEGATIVE (NEGATIVE); URINE PROTEIN NEGATIVE (NEGATIVE); URINE UROBILINOGEN NEGATIVE mg/dL (0.2-1.0)
[2018-02-08 01:43] LABS: URINE HYALINE CAST 4 /lpf; URINE MUCUS RARE
[2018-02-08 01:45] LABS: URINE SPERM 1+
[2018-02-08] MEDS ORDERED: METHADONE HCL 10 MG TABLET (FOR DETOX USE ONLY) PO ONE (10:00)
[2018-02-08] MEDS: PRENATAL VITAMINS W/ FOLIC ACID TABLET (FP) PO SCH (10:06)
[2018-02-08] MEDS: NICOTINE 7 MG/24 HOURS TOPICAL PATCH TD SCH (10:06)
[2018-02-08] MEDS: PANTOPRAZOLE 20 MG TABLET (FP) PO SCH (10:06)
[2018-02-08 10:14] LABS: HEMATOCRIT 38.6 % (35.4-49); HEMOGLOBIN 12.9 GM/dL (11.7-16.9); MCH 29.8 pg (25.7-33.7); MCHC 33.3 g/dl (32.0-35.9); MEAN CELL VOLUME 89.3 fl (80-96); MEAN PLT VOLUME 8.8 fl (7.5-11.1); PLATELET COUNT 187 K/MM3 (134-434); RBC 4.32 M/mm3 (4.00-5.60); RDW 13.4 % (11.9-15.9); WHITE BLOOD COUNT 3.9 K/mm3 (4.0-10.0)
[2018-02-08 10:34] LABS: ALBUMIN 3.7 g/dl (3.4-5.0); ALK PHOS 57 U/L (45-117); ANION GAP 9 MMOL/L (8-16); BILIRUBIN,TOTAL 0.2 mg/dL (0.2-1); BLOOD UREA NITROGEN 12 mg/dL (7-18); CALCIUM 7.8 mg/dL (8.5-10.1); CHLORIDE 105 mmol/L (98-107); CO2 24 mmol/L (21-32); CREATININE 0.9 mg/dL (0.55-1.3); GLUCOSE,RANDOM 145 mg/dL (74-106); POTASSIUM 3.7 mmol/L (3.5-5.1); SGOT/AST 13 U/L (15-37); SGPT/ALT 16 U/L (13-61); SODIUM 139 mmol/L (136-145); TOT PROT 6.5 g/dl (6.4-8.2)
[2018-02-08] MEDS: diazePAM 5 MG TABLET PO PRN ×3 (11:46→20:34)
--- NOTE | 2018-02-08 13:04 | PN ---
BHS COWS - Scale Resting Pulse: 0= [place] 80 or Below Sweatin= Chills/Flushing Restless Observation: 3= Extraneous Movement Pupil Size: 0= Normal to Room Light Bone or Joint Aches: 2= Severe Diffuse Aches Runny Nose/ Eye Tearin= Runny Nose/Eyes GI Upset > 30mins: 3= Vomiting/Diarrhea Tremor Observation of Outstretched Hands: 2= Slight Tremor Visible Yawning Observation: 1= 1-2x During Session Anxiety or Irritability: 2=Irritable/Anxious Goose Flesh Skin: 0=Smooth Skin COWS Score: 16 BHS Progress Note (SOAP) Subjective: Tremor, sweating, stomach ache, interrupted sleep Objective: 02/08/18 12:59 Last Vital Signs Temp Pulse Resp BP Pulse Ox 98.7 F 77 18 121/76 02/08/18 09:10 02/08/18 09:10 02/08/18 09:10 02/08/18 09:10 Laboratory Tests 02/07/18 02/08/18 02/08/18 23:00 07:30 07:30 WBC 3.9 L RBC 4.32 Hgb 12.9 Hct 38.6 D MCV 89.3 MCH 29.8 MCHC 33.3 RDW 13.4 Plt Count 187 MPV 8.8 Sodium 139 Potassium 3.7 Chloride 105 Carbon Dioxide 24 Anion Gap 9 BUN 12 Creatinine 0.9 Creat Clearance w eGFR > 60 Random Glucose 145 H Calcium 7.8 L Total Bilirubin 0.2 AST 13 L ALT 16 Alkaline Phosphatase 57 Total Protein 6.5 Albumin 3.7 Urine Color Yellow Urine Appearance Clear Urine pH 6.0 Ur Specific [place] 1.024 Urine Protein Negative Urine Glucose (UA) Negative Urine Ketones Negative Urine Blood 1+ H Urine Nitrite Negative Urine Bilirubin Negative Urine Urobilinogen Negative Ur Leukocyte Esterase Negative Urine WBC (Auto) 1 Urine RBC (Auto) 34 Hyaline Casts 4 Urine Mucus Rare HIV 1&2 Antibody Screen HIV P24 Antigen 02/08/18 07:30 WBC RBC Hgb Hct MCV MCH MCHC RDW Plt Count MPV Sodium Potassium Chloride Carbon Dioxide Anion Gap BUN Creatinine Creat Clearance w eGFR Random Glucose Calcium Total Bilirubin AST ALT Alkaline Phosphatase Total Protein Albumin Urine Color Urine Appearance Urine pH Ur Specific [place] Urine Protein Urine Glucose (UA) Urine Ketones Urine Blood Urine Nitrite Urine Bilirubin Urine Urobilinogen Ur Leukocyte Esterase Urine WBC (Auto) Urine RBC (Auto) Hyaline Casts Urine Mucus HIV 1&2 Antibody Screen Negative HIV P24 Antigen Negative Labs reviewed: serum glucose 145, abnormal UA Assessment: 02/08/18 13:01 Withdrawal symptoms Noted with hyperglycemia and abnormal UA Plan: Continue detox Hyperglycemia: repeat fasting glucose Abnormal UA: encouraged PO water intake, repeat UA
[2018-02-08] MEDS: THIAMINE HCL 100 MG TABLET (FP) PO SCH (22:18)
[2018-02-09] MEDS: diazePAM 5 MG TABLET PO PRN ×6 (01:11→22:13)
[2018-02-09] MEDS ORDERED: METHADONE HCL 5 MG TABLET (FOR DETOX USE ONLY) PO ONE (10:00)
[2018-02-09] MEDS: PRENATAL VITAMINS W/ FOLIC ACID TABLET (FP) PO SCH (10:12)
[2018-02-09] MEDS: PANTOPRAZOLE 20 MG TABLET (FP) PO SCH (10:12)
[2018-02-09] MEDS: NICOTINE 7 MG/24 HOURS TOPICAL PATCH TD SCH (10:12)
[2018-02-09] MEDS ORDERED: NICOTINE 21 MG/24 HOURS TOPICAL PATCH TD SCH (10:20)
[2018-02-09] MEDS: NICOTINE POLACRILEX 2 MG GUM BUC PRN (12:38)
--- NOTE | 2018-02-09 14:53 | PN ---
BHS COWS - Scale Resting Pulse: 1= [place] 81-100 Sweatin= Chills/Flushing Restless Observation: 3= Extraneous Movement Pupil Size: 0= Normal to Room Light Bone or Joint Aches: 1= Mild Discomfort Runny Nose/ Eye Tearin= None GI Upset > 30mins: 2= Nausea/Diarrhea Tremor Observation of Outstretched Hands: 2= Slight Tremor Visible Yawning Observation: 1= 1-2x During Session Anxiety or Irritability: 2=Irritable/Anxious Goose Flesh Skin: 0=Smooth Skin COWS Score: 13 BHS Progress Note (SOAP) Subjective: Nausea, sweating, interrupted sleep. Patient requesting to see psychiatrist regarding sleeping pill. As per patient, he was seen by psychiatrist yesterday but didn't receive his ambien. Objective: 02/09/18 14:51 Last Vital Signs Temp Pulse Resp BP Pulse Ox 99.3 F 85 18 107/67 02/09/18 13:33 02/09/18 13:33 02/09/18 13:33 02/09/18 13:33 Laboratory Tests 02/07/18 02/08/18 02/08/18 23:00 07:30 07:30 WBC 3.9 L RBC 4.32 Hgb 12.9 Hct 38.6 D MCV 89.3 MCH 29.8 MCHC 33.3 RDW 13.4 Plt Count 187 MPV 8.8 Sodium 139 Potassium 3.7 Chloride 105 Carbon Dioxide 24 Anion Gap 9 BUN 12 Creatinine 0.9 Creat Clearance w eGFR > 60 Random Glucose 145 H Fasting Glucose Calcium 7.8 L Total Bilirubin 0.2 AST 13 L ALT 16 Alkaline Phosphatase 57 Total Protein 6.5 Albumin 3.7 Urine Color Yellow Urine Appearance Clear Urine pH 6.0 Ur Specific [place] 1.024 Urine Protein Negative Urine Glucose (UA) Negative Urine Ketones Negative Urine Blood 1+ H Urine Nitrite Negative Urine Bilirubin Negative Urine Urobilinogen Negative Ur Leukocyte Esterase Negative Urine WBC (Auto) 1 Urine RBC (Auto) 34 Hyaline Casts 4 Urine Mucus Rare RPR Titer HIV 1&2 Antibody Screen HIV P24 Antigen 02/08/18 02/08/18 02/09/18 07:30 07:30 07:00 WBC RBC Hgb Hct MCV MCH MCHC RDW Plt Count MPV Sodium Potassium Chloride Carbon Dioxide Anion Gap BUN Creatinine Creat Clearance w eGFR Random Glucose Fasting Glucose 98 Calcium Total Bilirubin AST ALT Alkaline Phosphatase Total Protein Albumin Urine Color Urine Appearance Urine pH Ur Specific [place] Urine Protein Urine Glucose (UA) Urine Ketones Urine Blood Urine Nitrite Urine Bilirubin Urine Urobilinogen Ur Leukocyte Esterase Urine WBC (Auto) Urine RBC (Auto) Hyaline Casts Urine Mucus RPR Titer Nonreactive HIV 1&2 Antibody Screen Negative HIV P24 Antigen Negative Labs reviewed: abnormal UA Assessment: 02/09/18 14:52 Withdrawal sxs Abnormal UA noted Plan: Continue detox Abnormal UA: encouraged PO water intake, follow up on repeated UA (result pending)
[2018-02-09 15:05] LABS: URINE APPEARANCE CLEAR; URINE BILIRUBIN NEGATIVE (<2.0 mg/dL); URINE COLOR STRAW; URINE GLUCOSE (UA) NEGATIVE (NEGATIVE); URINE KETONE NEGATIVE (NEGATIVE); URINE LEUK ESTERASE NEGATIVE (NEGATIVE); URINE NITRITE NEGATIVE (NEGATIVE); URINE PROTEIN NEGATIVE (NEGATIVE); URINE UROBILINOGEN NEGATIVE mg/dL (0.2-1.0)
[2018-02-09] MEDS: THIAMINE HCL 100 MG TABLET (FP) PO SCH (22:13)
[2018-02-10] MEDS: diazePAM 5 MG TABLET PO PRN ×2 (02:03→05:18)
[2018-02-10] MEDS: MAG HYDROX/AL HYDROX/SIMETH 30 ML UNIT-DOSE CUP PO PRN (05:20)
[2018-02-10] MEDS: NICOTINE POLACRILEX 2 MG GUM BUC PRN (05:25)
[2018-02-10 06:37] VITALS: BP 112/71; PULSE 72; TEMP 97.6
--- NOTE | 2018-02-10 09:17 | CONSULT ---
[facility] Psychiatric Consult - Data Date of interview: 02/10/18 Identifying data: Senior Maintenance Mechanic informed by nursing staff that patient signed himself out of detox. Senior Maintenance Mechanic unable to complete psychiatric consultation.
[2018-02-10] MEDS ORDERED: METHADONE HCL 10 MG TABLET (FOR DETOX USE ONLY) PO ONE (10:00)
--- NOTE | 2018-02-10 12:01 | DS ---
[facility] Detox Discharge Summary Admission Date: 02/07/18 Discharge Date: 02/10/18 - History Present History: Opioid Dependence Additional Comments: Patient decided to leave AMA despite encouragement from staff to complete detox. Patient is A/A/Ox3, in nad, ambulatory. Patient instructed to call 911 if he's feeling sick or any withdrawal symptoms and to see his PCP within 3 days Pertinent Past History: GERD Nicotine dependence Opioid dependence Depression - Physical Exam Results Vital Signs: Vital Signs Temperature 97.6 F 02/10/18 06:36 Pulse Rate 72 02/10/18 06:36 Respiratory Rate 16 02/10/18 06:36 Blood Pressure 112/71 02/10/18 06:36 O2 Sat by Pulse Oximetry (%) Pertinent Admission Physical Exam Findings: Withdrawal sxs Laboratory Tests 02/07/18 02/08/18 02/08/18 23:00 07:30 07:30 WBC 3.9 L RBC 4.32 Hgb 12.9 Hct 38.6 D MCV 89.3 MCH 29.8 MCHC 33.3 RDW 13.4 Plt Count 187 MPV 8.8 Sodium 139 Potassium 3.7 Chloride 105 Carbon Dioxide 24 Anion Gap 9 BUN 12 Creatinine 0.9 Creat Clearance w eGFR > 60 Random Glucose 145 H Fasting Glucose Calcium 7.8 L Total Bilirubin 0.2 AST 13 L ALT 16 Alkaline Phosphatase 57 Total Protein 6.5 Albumin 3.7 Urine Color Yellow Urine Appearance Clear Urine pH 6.0 Ur Specific [place] 1.024 Urine Protein Negative Urine Glucose (UA) Negative Urine Ketones Negative Urine Blood 1+ H Urine Nitrite Negative Urine Bilirubin Negative Urine Urobilinogen Negative Ur Leukocyte Esterase Negative Urine WBC (Auto) 1 Urine RBC (Auto) 34 Hyaline Casts 4 Urine Mucus Rare RPR Titer HIV 1&2 Antibody Screen HIV P24 Antigen 02/08/18 02/08/18 02/09/18 07:30 07:30 07:00 WBC RBC Hgb Hct MCV MCH MCHC RDW Plt Count MPV Sodium Potassium Chloride Carbon Dioxide Anion Gap BUN Creatinine Creat Clearance w eGFR Random Glucose Fasting Glucose 98 Calcium Total Bilirubin AST ALT Alkaline Phosphatase Total Protein Albumin Urine Color Urine Appearance Urine pH Ur Specific [place] Urine Protein Urine Glucose (UA) Urine Ketones Urine Blood Urine Nitrite Urine Bilirubin Urine Urobilinogen Ur Leukocyte Esterase Urine WBC (Auto) Urine RBC (Auto) Hyaline Casts Urine Mucus RPR Titer Nonreactive HIV 1&2 Antibody Screen Negative HIV P24 Antigen Negative 02/09/18 10:35 WBC RBC Hgb Hct MCV MCH MCHC RDW Plt Count MPV Sodium Potassium Chloride Carbon Dioxide Anion Gap BUN Creatinine Creat Clearance w eGFR Random Glucose Fasting Glucose Calcium Total Bilirubin AST ALT Alkaline Phosphatase Total Protein Albumin Urine Color Straw Urine Appearance Clear Urine pH 7.0 Ur Specific [place] 1.004 L Urine Protein Negative Urine Glucose (UA) Negative Urine Ketones Negative Urine Blood Negative Urine Nitrite Negative Urine Bilirubin Negative Urine Urobilinogen Negative Ur Leukocyte Esterase Negative Urine WBC (Auto) Urine RBC (Auto) Hyaline Casts Urine Mucus RPR Titer HIV 1&2 Antibody Screen HIV P24 Antigen Labs reviewed - Treatment Hospital Course: Detox Protocol Followed - Medication Discharge Medications: Ambulatory Orders Esomeprazole Magnesium [Nexium 24Hr] 40 mg PO DAILY 08/12/15 - Diagnosis (1) Abnormal finding on urinalysis Status: Resolved (2) Nicotine dependence Status: Chronic Qualifiers: Nicotine product type: cigarettes Substance use status: in withdrawal Qualified Code(s): F17.213 - Nicotine dependence, cigarettes, with withdrawal (3) Opioid dependence with withdrawal Status: Acute (4) GERD (gastroesophageal reflux disease) Status: Chronic Qualifiers: Esophagitis presence: without esophagitis Qualified Code(s): K21.9 - Gastro -esophageal reflux disease without esophagitis (5) Depression Status: Chronic Qualifiers: Depression Type: dysthymia Qualified Code(s): F34.1 - Dysthymic disorder - AMA Did Patient Leave Against Medical Advice: Yes (Instructed to call 911 if sick or withdrawal sxs)
[2018-02-10] MEDS ORDERED: MELATONIN 5 MG TABLETS PO SCH (22:00)
[2018-02-11] MEDS ORDERED: METHADONE HCL 5 MG TABLET (FOR DETOX USE ONLY) PO ONE (06:00)
== END 2018-02-10 08:38 | disposition left against medical advice (07) | DRG 770 ==
LOC: YASAS 15:59 → Y3N 20:19
PROC: HZ2ZZZZ Detoxification Services for Substance Abuse Treatment (ICD-10-PCS; principal; 2018-02-07)
DX: F11.23 Opioid dependence with withdrawal (principal); F17.210 Nicotine dependence, cigarettes, uncomplicated; F34.1 Dysthymic disorder; K21.9 Gastro-esophageal reflux disease without esophagitis; R82.90 Unspecified abnormal findings in urine; R73.9 Hyperglycemia, unspecified; Z88.8 Allergy status to other drugs, medicaments and biological substances
CPT/HCPCS: 36415; 80053; 81003; 81015; 82947; 85027; 86593; 87389

== ENCOUNTER 2020-05-06 11:45 | Inpatient (IN) | payer OTHER ==
[2020-05-06 13:12] VITALS: BMI 20.9
[2020-05-06] MEDS ORDERED: NICOTINE POLACRILEX 2 MG GUM BUC PRN (13:32)
[2020-05-06] MEDS ORDERED: MAGNESIUM HYDROX 2400MG/30ML ORAL SUSPENSION 30 ML CUP PO PRN (13:32)
[2020-05-06] MEDS ORDERED: MAGNESIUM CITRATE 300 ML BOTTLE PO PRN (13:32)
[2020-05-06] MEDS ORDERED: MAG HYDROX/AL HYDROX/SIMETH 30 ML UNIT-DOSE CUP PO PRN (13:32)
[2020-05-06] MEDS ORDERED: IBUPROFEN 400 MG TABLET (FP) PO PRN (13:32)
[2020-05-06] MEDS ORDERED: BISMUTH SUBSALICYLATE 524 MG/30 ML UD PO PRN (13:32)
[2020-05-06] MEDS ORDERED: MENTHOL/PHENOL 1 EACH UD MM PRN (13:32)
[2020-05-06] MEDS ORDERED: ACETAMINOPHEN 325 MG TABLET (FP) PO PRN ×2 (13:32)
[2020-05-06] MEDS ORDERED: METHADONE HCL 10 MG TABLET (FOR DETOX USE ONLY) PO ONE (14:00)
[2020-05-06] MEDS: chlordiazePOXIDE HCL 25 MG CAPSULE PO PRN ×2 (15:09→20:54)
[2020-05-06] MEDS: PRENATAL VITAMINS W/ FOLIC ACID TABLET (FP) PO SCH (15:10)
[2020-05-06] MEDS: PANTOPRAZOLE 40 MG TABLET PO SCH (15:10)
[2020-05-06] MEDS: chlordiazePOXIDE HCL 25 MG CAPSULE PO SCH ×3 (15:13→22:29)
[2020-05-06] MEDS: NICOTINE 21 MG/24 HOURS TOPICAL PATCH TD SCH (15:13)
[2020-05-06] MEDS: hydrOXYzine PAMOATE 25 MG CAPSULE (FP) PO SCH ×3 (15:15→22:30)
[2020-05-06] MEDS: cloNIDine HCL 0.1 MG TABLET PO PRN ×2 (16:42→20:54)
[2020-05-06] MEDS: METHOCARBAMOL 500 MG TABLET PO PRN (16:42)
[2020-05-06 18:55] LABS: POTASSIUM 4.4 mmol/L (3.5-5.1)
[2020-05-06 19:00] LABS: ALBUMIN 4.5 g/dl (3.4-5.0); CALCIUM 9.4 mg/dL (8.5-10.1)
[2020-05-06 19:01] LABS: BLOOD UREA NITROGEN 11.9 mg/dL (7-18)
[2020-05-06 19:04] LABS: BILIRUBIN,TOTAL 0.9 mg/dL (0.2-1); TOT PROT 8.3 g/dl (6.4-8.2)
[2020-05-06 19:10] LABS: HEMATOCRIT 47.5 % (35.4-49); HEMOGLOBIN 16.6 GM/dL (11.7-16.9); MCH 31.8 pg (25.7-33.7); MEAN CELL VOLUME 90.9 fl (80-96); PLATELET COUNT 154 K/MM3 (134-434); RBC 5.23 M/mm3 (4.00-5.60); WHITE BLOOD COUNT 18.3 K/mm3 (4.0-10.0)
[2020-05-06] MEDS: MELATONIN 5 MG TABLETS PO SCH (22:30)
[2020-05-06] MEDS: THIAMINE HCL 100 MG TABLET (FP) PO SCH (22:30)
[2020-05-07] MEDS: chlordiazePOXIDE HCL 25 MG CAPSULE PO PRN ×3 (01:20→12:27)
[2020-05-07] MEDS: ONDANSETRON *ODT* 4 MG TABLET SL PRN ×2 (01:20→08:49)
[2020-05-07] MEDS: METHOCARBAMOL 500 MG TABLET PO PRN ×3 (01:20→22:20)
[2020-05-07] MEDS: chlordiazePOXIDE HCL 25 MG CAPSULE PO SCH ×3 (05:43→17:20)
[2020-05-07] MEDS: hydrOXYzine PAMOATE 25 MG CAPSULE (FP) PO SCH ×2 (05:43→10:08)
[2020-05-07] MEDS ORDERED: METHADONE HCL 10 MG TABLET (FOR DETOX USE ONLY) ONE (08:39)
[2020-05-07] MEDS ORDERED: METHADONE HCL 5 MG TABLET (FOR DETOX USE ONLY) ONE (08:39)
[2020-05-07] MEDS ORDERED: METHADONE (DETOX) 20 MG, METHADONE (DETOX) 5 MG PO ONE (10:00)
[2020-05-07] MEDS: PRENATAL VITAMINS W/ FOLIC ACID TABLET (FP) PO SCH (10:08)
[2020-05-07] MEDS: PANTOPRAZOLE 40 MG TABLET PO SCH (10:08)
[2020-05-07] MEDS: cloNIDine HCL 0.1 MG TABLET PO PRN ×3 (10:08→23:12)
[2020-05-07] MEDS: NICOTINE 21 MG/24 HOURS TOPICAL PATCH TD SCH (10:10)
[2020-05-07] MEDS ORDERED: hydrOXYzine PAMOATE 25 MG CAPSULE (FP) PO PRN (12:58)
[2020-05-07] MEDS: LORazepam 1 MG TABLET PO PRN (18:57)
[2020-05-07] MEDS ORDERED: QUEtiapine FUMARATE 50 MG TABLET PO SCH (22:00)
[2020-05-07] MEDS: THIAMINE HCL 100 MG TABLET (FP) PO SCH (22:20)
[2020-05-07] MEDS: LORazepam 2 MG TABLET PO SCH (22:20)
[2020-05-07] MEDS: MELATONIN 5 MG TABLETS PO SCH (22:30)
[2020-05-08] MEDS: LORazepam 1 MG TABLET PO PRN ×4 (00:28→19:36)
[2020-05-08] MEDS ORDERED: chlordiazePOXIDE HCL 25 MG CAPSULE PO SCH (05:00)
[2020-05-08] MEDS: LORazepam 2 MG TABLET PO SCH ×4 (05:17→22:04)
[2020-05-08] MEDS: METHOCARBAMOL 500 MG TABLET PO PRN ×3 (08:25→22:06)
[2020-05-08] MEDS ORDERED: METHADONE HCL 10 MG TABLET (FOR DETOX USE ONLY) PO ONE (10:00)
[2020-05-08] MEDS: cloNIDine HCL 0.1 MG TABLET PO PRN (10:11)
[2020-05-08] MEDS: PRENATAL VITAMINS W/ FOLIC ACID TABLET (FP) PO SCH (10:11)
[2020-05-08] MEDS: PANTOPRAZOLE 40 MG TABLET PO SCH (10:11)
[2020-05-08] MEDS: NICOTINE 21 MG/24 HOURS TOPICAL PATCH TD SCH (10:14)
[2020-05-08 12:27] LABS: BASO % 0.6 % (0-2.0); EOS % 2.2 % (0-4.5); HEMATOCRIT 38.3 % (35.4-49); LYMPH % 22.4 % (8-40); MCH 31.6 pg (25.7-33.7); MCHC 34.1 g/dl (32.0-35.9); MEAN CELL VOLUME 92.8 fl (80-96); MEAN PLT VOLUME 9.5 fl (7.5-11.1); MONO % 7.4 % (3.8-10.2); NEUT % 67.4 % (42.8-82.8); PLATELET COUNT 96 K/MM3 (134-434); RBC 4.12 M/mm3 (4.00-5.60); RDW 13.7 % (11.9-15.9); WHITE BLOOD COUNT 4.4 K/mm3 (4.0-10.0)
[2020-05-08] MEDS ORDERED: SUVOREXANT 10 MG TABLET PO PRN (13:28)
[2020-05-08] MEDS ORDERED: busPIRone HCL 5 MG TABLET PO PRN (13:29)
[2020-05-08 13:51] LABS: INR 0.88 (0.83-1.09); PROTHROMBIN TIME (PATIENT) 10.9 SEC (9.7-13.0)
[2020-05-08 13:54] LABS: ACTIVATED PTT 30.1 SECONDS (25.2-36.5)
[2020-05-08] MEDS: LIDOCAINE 5% TOPICAL PATCH TP SCH (15:29)
[2020-05-08] MEDS: busPIRone HCL 5 MG TABLET PO SCH ×2 (15:30→22:03)
[2020-05-08] MEDS: IBUPROFEN 600 MG TABLET (FP) PO PRN (17:04)
[2020-05-08] MEDS: THIAMINE HCL 100 MG TABLET (FP) PO SCH (22:03)
[2020-05-08] MEDS: LIDOCAINE PATCH REMOVAL MC SCH (22:04)
[2020-05-09] MEDS ORDERED: chlordiazePOXIDE HCL 10 MG CAPSULE PO PRN
[2020-05-09] MEDS: LORazepam 1 MG TABLET PO PRN ×4 (00:24→19:20)
[2020-05-09] MEDS ORDERED: MASKS NR ONE (01:12)
[2020-05-09] MEDS: LORazepam 1 MG TABLET PO SCH ×4 (04:33→22:17)
[2020-05-09] MEDS: METHOCARBAMOL 500 MG TABLET PO PRN ×3 (04:36→22:20)
[2020-05-09] MEDS ORDERED: chlordiazePOXIDE HCL 10 MG CAPSULE PO SCH (05:00)
[2020-05-09] MEDS: busPIRone HCL 5 MG TABLET PO SCH (06:46)
[2020-05-09] MEDS: cloNIDine HCL 0.1 MG TABLET PO PRN (06:48)
[2020-05-09] MEDS: IBUPROFEN 600 MG TABLET (FP) PO PRN ×2 (07:17→17:14)
[2020-05-09] MEDS ORDERED: METHADONE HCL 5 MG TABLET (FOR DETOX USE ONLY) ONE (09:29)
[2020-05-09] MEDS ORDERED: METHADONE HCL 10 MG TABLET (FOR DETOX USE ONLY) ONE (09:29)
[2020-05-09] MEDS ORDERED: GABAPENTIN 100 MG CAPSULE PO ONE (09:58)
[2020-05-09] MEDS ORDERED: METHADONE (DETOX) 10 MG, METHADONE (DETOX) 5 MG PO ONE (10:00)
[2020-05-09] MEDS: PRENATAL VITAMINS W/ FOLIC ACID TABLET (FP) PO SCH (10:08)
[2020-05-09] MEDS: LIDOCAINE 5% TOPICAL PATCH TP SCH (10:09)
[2020-05-09] MEDS: NICOTINE 21 MG/24 HOURS TOPICAL PATCH TD SCH (10:10)
[2020-05-09] MEDS: PANTOPRAZOLE 40 MG TABLET PO SCH (10:10)
[2020-05-09 11:24] LABS: BLOOD UREA NITROGEN 14.2 mg/dL (7-18); CALCIUM 9.3 mg/dL (8.5-10.1)
[2020-05-09 11:27] LABS: CREATININE 0.9 mg/dL (0.55-1.3)
[2020-05-09 11:28] LABS: BILIRUBIN,TOTAL 1.8 mg/dL (0.2-1); TOT PROT 7.2 g/dl (6.4-8.2)
[2020-05-09] MEDS ORDERED: cloNIDine HCL 0.1 MG TABLET PO SCH (12:00)
[2020-05-09] MEDS ORDERED: cloNIDine HCL 0.1 MG TABLET PO ONE (12:01)
[2020-05-09] MEDS: GABAPENTIN 100 MG CAPSULE PO SCH ×2 (13:20→22:18)
[2020-05-09] MEDS: SUVOREXANT 10 MG TABLET PO PRN (22:18)
[2020-05-09] MEDS: THIAMINE HCL 100 MG TABLET (FP) PO SCH (22:18)
[2020-05-09] MEDS: LIDOCAINE PATCH REMOVAL MC SCH (22:19)
[2020-05-10] MEDS: LORazepam 0.5 MG TABLET PO PRN ×5 (00:52→20:12)
[2020-05-10] MEDS: IBUPROFEN 600 MG TABLET (FP) PO PRN ×2 (00:53→10:09)
[2020-05-10] MEDS ORDERED: chlordiazePOXIDE HCL 10 MG CAPSULE PO SCH (05:00)
[2020-05-10] MEDS: LORazepam 0.5 MG TABLET PO SCH ×4 (05:21→22:11)
[2020-05-10] MEDS: GABAPENTIN 100 MG CAPSULE PO SCH ×3 (05:23→22:11)
[2020-05-10] MEDS ORDERED: METHADONE HCL 10 MG TABLET (FOR DETOX USE ONLY) PO ONE (10:00)
[2020-05-10] MEDS: PANTOPRAZOLE 40 MG TABLET PO SCH (10:07)
[2020-05-10] MEDS: PRENATAL VITAMINS W/ FOLIC ACID TABLET (FP) PO SCH (10:07)
[2020-05-10] MEDS: LIDOCAINE 5% TOPICAL PATCH TP SCH (10:08)
[2020-05-10] MEDS: NICOTINE 21 MG/24 HOURS TOPICAL PATCH TD SCH (10:08)
[2020-05-10 11:05] LABS: SGOT/AST 466 U/L (15-37); SGPT/ALT 577 U/L (13-61)
[2020-05-10] MEDS: THIAMINE HCL 100 MG TABLET (FP) PO SCH (22:11)
[2020-05-10] MEDS: LIDOCAINE PATCH REMOVAL MC SCH (22:11)
[2020-05-10] MEDS: METHOCARBAMOL 500 MG TABLET PO PRN (22:12)
[2020-05-11] MEDS: SUVOREXANT 10 MG TABLET PO PRN (00:16)
[2020-05-11] MEDS ORDERED: LORazepam 0.5 MG TABLET PO ONE (05:00)
[2020-05-11] MEDS ORDERED: chlordiazePOXIDE HCL 10 MG CAPSULE PO ONE (05:00)
[2020-05-11] MEDS: GABAPENTIN 100 MG CAPSULE PO SCH (05:55)
[2020-05-11] MEDS ORDERED: METHADONE HCL 5 MG TABLET (FOR DETOX USE ONLY) PO ONE (06:00)
[2020-05-11 09:12] VITALS: BP 130/87; PULSE 83; TEMP 97.2
[2020-05-11] MEDS: PANTOPRAZOLE 40 MG TABLET PO SCH (09:35)
[2020-05-11] MEDS: PRENATAL VITAMINS W/ FOLIC ACID TABLET (FP) PO SCH (09:35)
[2020-05-11] MEDS: LIDOCAINE 5% TOPICAL PATCH TP SCH (09:36)
[2020-05-11] MEDS: NICOTINE 21 MG/24 HOURS TOPICAL PATCH TD SCH (09:36)
== END 2020-05-11 09:45 | disposition home or self-care (01) | DRG 773 ==
LOC: YASAS 11:45 → Y3N 13:49
PROVIDERS: ADMIT Allergy & Immunology; ATTEND Allergy & Immunology
PROC: HZ2ZZZZ Detoxification Services for Substance Abuse Treatment (ICD-10-PCS; principal; 2020-05-06)
DX: F11.23 Opioid dependence with withdrawal (principal); F10.230 Alcohol dependence with withdrawal, uncomplicated; F12.20 Cannabis dependence, uncomplicated; F17.210 Nicotine dependence, cigarettes, uncomplicated; F19.280 Other psychoactive substance dependence with psychoactive substance-induced anxiety disorder; F19.24 Other psychoactive substance dependence with psychoactive substance-induced mood disorder; F90.9 Attention-deficit hyperactivity disorder, unspecified type; D69.6 Thrombocytopenia, unspecified; K21.9 Gastro-esophageal reflux disease without esophagitis; R03.0 Elevated blood-pressure reading, without diagnosis of hypertension; R74.01 Elevation of levels of liver transaminase levels; Z62.810 Personal history of physical and sexual abuse in childhood; Z86.69 Personal history of other diseases of the nervous system and sense organs; Z88.8 Allergy status to other drugs, medicaments and biological substances; W19.XXXA Unspecified fall, initial encounter; Y93.89 Activity, other specified; Y92.230 Patient room in hospital as the place of occurrence of the external cause; Y99.8 Other external cause status
CPT/HCPCS: 36415; 80053; 84450; 84460; 85025; 85027; 85610; 85730; 86780; 87389; C9803; J0735; Q0162; U0003

== ENCOUNTER 2022-06-27 12:12 | Inpatient (IN) | payer OTHER ==
[2022-06-27 12:55] VITALS: BMI 21.2
[2022-06-27] MEDS ORDERED: methaDONE HCL 10 MG TABLET (FOR DETOX USE ONLY) PO ONE (15:12)
[2022-06-27] MEDS ORDERED: NALOXONE HCL (KLOXXADO) 8 MG SPRAY NS PRN (15:12)
[2022-06-27] MEDS ORDERED: POLYETHYLENE GLYCOL (HEALTHYLAX) 3350 17 GM PACKET PO PRN (15:12)
[2022-06-27] MEDS ORDERED: LOPERAMIDE HCL 2 MG CAPSULE PO PRN (15:12)
[2022-06-27] MEDS ORDERED: guaiFENesin 600 MG TABLET.ER (FP) PO PRN (15:12)
[2022-06-27] MEDS ORDERED: BENZONATATE 200 MG CAPSULE PO PRN (15:12)
[2022-06-27] MEDS ORDERED: BISMUTH SUBSALICYLATE 524 MG/30 ML PO PRN (15:12)
[2022-06-27] MEDS ORDERED: DICYCLOMINE HCL 10 MG CAPSULE PO PRN (15:12)
[2022-06-27] MEDS ORDERED: NALOXONE HCL 0.4 MG/ML VIAL IM PRN (15:12)
[2022-06-27] MEDS ORDERED: ONDANSETRON *ODT* 4 MG TABLET SL PRN (15:12)
[2022-06-27] MEDS ORDERED: BENZOCAINE/MENTHOL (CHLORASEPTIC ) LOZENGE MM PRN (15:12)
[2022-06-27] MEDS ORDERED: MAGNESIUM HYDROX 2400MG/30ML ORAL SUSPENSION 30 ML CUP PO PRN (15:12)
[2022-06-27] MEDS ORDERED: ACETAMINOPHEN 325 MG TABLET (FP) PO PRN (15:12)
[2022-06-27] MEDS ORDERED: diazePAM 5 MG TABLET PO ONE (15:31)
[2022-06-27] MEDS ORDERED: methaDONE HCL 10 MG TABLET (FOR DETOX USE ONLY) ONE (15:34)
[2022-06-27] MEDS ORDERED: diazePAM 5 MG TABLET ONE (15:35)
[2022-06-27] MEDS: cloNIDine HCL 0.1 MG TABLET PO PRN (16:08)
[2022-06-27] MEDS: diazePAM 5 MG TABLET PO SCH ×2 (17:28→22:16)
[2022-06-27] MEDS: MAG HYDROX/AL HYDROX/SIMETH 30 ML UNIT-DOSE CUP PO PRN (17:31)
[2022-06-27] MEDS: IBUPROFEN 600 MG TABLET (FP) PO PRN (17:32)
[2022-06-27] MEDS: diazePAM 5 MG TABLET PO PRN (20:03)
[2022-06-27] MEDS: MELATONIN 5 MG TABLETS PO SCH (22:14)
[2022-06-27] MEDS: THIAMINE HCL 100 MG TABLET (FP) PO SCH (22:15)
[2022-06-27] MEDS: hydrOXYzine PAMOATE 25 MG CAPSULE (FP) PO PRN (22:15)
[2022-06-27] MEDS: METHOCARBAMOL 500 MG TABLET PO PRN (22:15)
[2022-06-28] MEDS: diazePAM 5 MG TABLET PO PRN ×4 (00:02→19:36)
[2022-06-28] MEDS: diazePAM 5 MG TABLET PO SCH ×4 (05:42→22:13)
[2022-06-28] MEDS: cloNIDine HCL 0.1 MG TABLET PO PRN ×2 (07:20→17:20)
[2022-06-28] MEDS: METHOCARBAMOL 500 MG TABLET PO PRN ×2 (07:20→22:13)
[2022-06-28] MEDS: PANTOPRAZOLE 40 MG TABLET PO SCH (10:09)
[2022-06-28] MEDS: PRENATAL VITAMINS W/ FOLIC ACID TABLET (FP) PO SCH (10:09)
[2022-06-28 11:45] LABS: HEMATOCRIT 38.6 % (35.4-49); HEMOGLOBIN 13.3 GM/dL (11.7-16.9); MCH 30.4 pg (25.7-33.7); MCHC 34.4 g/dl (32.0-35.9); MEAN CELL VOLUME 88.3 fl (80-96); MEAN PLT VOLUME 8.1 fl (7.5-11.1); PLATELET COUNT 255 10^3/uL (134-434); RBC 4.37 M/mm3 (4.00-5.60); RDW 14.2 % (11.9-15.9); WHITE BLOOD COUNT 4.4 K/mm3 (4.0-10.0)
[2022-06-28 11:56] LABS: BILIRUBIN,TOTAL 0.3 mg/dL (0.2-1); TOT PROT 6.6 g/dl (6.4-8.2)
[2022-06-28 11:59] LABS: ALBUMIN 3.6 g/dl (3.4-5.0); BLOOD UREA NITROGEN 12.8 mg/dL (7-18)
[2022-06-28 12:01] LABS: CALCIUM 8.7 mg/dL (8.5-10.1)
[2022-06-28] MEDS: IBUPROFEN 600 MG TABLET (FP) PO PRN (12:37)
[2022-06-28] MEDS: NICOTINE 10 MG CARTRIDGE (INHALER) IH PRN ×3 (12:39→20:28)
[2022-06-28] MEDS: hydrOXYzine PAMOATE 25 MG CAPSULE (FP) PO PRN (14:46)
[2022-06-28] MEDS: NICOTINE POLACRILEX 2 MG GUM BUC PRN (20:28)
[2022-06-28] MEDS ORDERED: QUEtiapine FUMARATE 100 MG TABLET (FP) PO SCH (22:00)
[2022-06-28] MEDS ORDERED: MIRTAZAPINE 15 MG TABLET (FP) PO SCH (22:00)
[2022-06-28] MEDS: MELATONIN 5 MG TABLETS PO SCH (22:12)
[2022-06-28] MEDS: THIAMINE HCL 100 MG TABLET (FP) PO SCH (22:13)
[2022-06-29] MEDS: IBUPROFEN 600 MG TABLET (FP) PO PRN ×3 (00:44→22:19)
[2022-06-29] MEDS: diazePAM 5 MG TABLET PO PRN ×4 (00:45→19:33)
[2022-06-29] MEDS: NICOTINE 10 MG CARTRIDGE (INHALER) IH PRN ×6 (00:46→21:07)
[2022-06-29] MEDS: NICOTINE POLACRILEX 2 MG GUM BUC PRN ×6 (03:47→21:07)
[2022-06-29] MEDS: diazePAM 5 MG TABLET PO SCH ×3 (05:28→22:22)
[2022-06-29] MEDS: MAG HYDROX/AL HYDROX/SIMETH 30 ML UNIT-DOSE CUP PO PRN (05:28)
[2022-06-29] MEDS ORDERED: methaDONE HCL 10 MG TABLET (FOR DETOX USE ONLY) PO ONE (10:00)
[2022-06-29] MEDS ORDERED: DEXTROAMPHETAMINE/AMPHETAMINE 10 MG CAP.ER.24H PO SCH (10:00)
[2022-06-29] MEDS: PANTOPRAZOLE 40 MG TABLET PO SCH (10:10)
[2022-06-29] MEDS: PRENATAL VITAMINS W/ FOLIC ACID TABLET (FP) PO SCH (10:18)
[2022-06-29] MEDS: hydrOXYzine PAMOATE 25 MG CAPSULE (FP) PO PRN (17:37)
[2022-06-29] MEDS: MELATONIN 5 MG TABLETS PO SCH (22:20)
[2022-06-29] MEDS: MIRTAZAPINE 15 MG TABLET (FP) PO SCH (22:20)
[2022-06-29] MEDS: THIAMINE HCL 100 MG TABLET (FP) PO SCH (22:20)
[2022-06-29] MEDS: QUEtiapine FUMARATE 200 MG TABLET PO SCH (22:21)
[2022-06-30] MEDS: diazePAM 5 MG TABLET PO SCH ×2 (05:41→17:42)
[2022-06-30] MEDS: NICOTINE POLACRILEX 2 MG GUM BUC PRN ×6 (05:43→21:56)
[2022-06-30] MEDS: NICOTINE 10 MG CARTRIDGE (INHALER) IH PRN ×5 (05:43→21:55)
[2022-06-30] MEDS: hydrOXYzine PAMOATE 25 MG CAPSULE (FP) PO PRN ×3 (05:46→21:58)
[2022-06-30] MEDS: IBUPROFEN 400 MG TABLET (FP) PO PRN (05:46)
[2022-06-30] MEDS: diazePAM 5 MG TABLET PO PRN ×2 (07:50→12:41)
[2022-06-30] MEDS: DEXTROAMPHETAMINE/AMPHETAMINE 10 MG CAP.ER.24H PO SCH (10:10)
[2022-06-30] MEDS: PRENATAL VITAMINS W/ FOLIC ACID TABLET (FP) PO SCH (10:14)
[2022-06-30] MEDS: PANTOPRAZOLE 40 MG TABLET PO SCH (10:15)
[2022-06-30] MEDS: MELATONIN 5 MG TABLETS PO SCH (21:57)
[2022-06-30] MEDS: METHOCARBAMOL 500 MG TABLET PO PRN (21:58)
[2022-06-30] MEDS: MIRTAZAPINE 15 MG TABLET (FP) PO SCH (21:58)
[2022-06-30] MEDS: QUEtiapine FUMARATE 200 MG TABLET PO SCH (21:58)
[2022-06-30] MEDS: THIAMINE HCL 100 MG TABLET (FP) PO SCH (21:59)
[2022-07-01] MEDS ORDERED: diazePAM 5 MG TABLET PO ONE (06:00)
[2022-07-01] MEDS: NICOTINE POLACRILEX 2 MG GUM BUC PRN ×6 (08:42→20:49)
[2022-07-01] MEDS: NICOTINE 10 MG CARTRIDGE (INHALER) IH PRN ×4 (08:42→20:48)
[2022-07-01] MEDS ORDERED: methaDONE HCL 10 MG TABLET (FOR DETOX USE ONLY) PO ONE (10:00)
[2022-07-01] MEDS: PRENATAL VITAMINS W/ FOLIC ACID TABLET (FP) PO SCH (10:08)
[2022-07-01] MEDS: CYCLOBENZAPRINE HCL 10 MG TABLET (FP) PO PRN ×2 (10:08→21:55)
[2022-07-01] MEDS: PANTOPRAZOLE 40 MG TABLET PO SCH (10:08)
[2022-07-01] MEDS: DEXTROAMPHETAMINE/AMPHETAMINE 10 MG CAP.ER.24H PO SCH (10:08)
[2022-07-01] MEDS: IBUPROFEN 400 MG TABLET (FP) PO PRN (10:12)
[2022-07-01] MEDS: QUEtiapine FUMARATE 200 MG TABLET PO SCH (21:55)
[2022-07-01] MEDS: MELATONIN 5 MG TABLETS PO SCH (21:55)
[2022-07-01] MEDS: MIRTAZAPINE 15 MG TABLET (FP) PO SCH (21:56)
[2022-07-01] MEDS: THIAMINE HCL 100 MG TABLET (FP) PO SCH (21:57)
[2022-07-01] MEDS: IBUPROFEN 600 MG TABLET (FP) PO PRN (21:58)
[2022-07-02] MEDS: NICOTINE 10 MG CARTRIDGE (INHALER) IH PRN ×2 (00:25→06:09)
[2022-07-02] MEDS: NICOTINE POLACRILEX 2 MG GUM BUC PRN ×2 (00:26→06:09)
[2022-07-02] MEDS: PANTOPRAZOLE 40 MG TABLET PO SCH (09:12)
[2022-07-02] MEDS: DEXTROAMPHETAMINE/AMPHETAMINE 10 MG CAP.ER.24H PO SCH (09:12)
[2022-07-02] MEDS: PRENATAL VITAMINS W/ FOLIC ACID TABLET (FP) PO SCH (09:14)
[2022-07-02 09:19] VITALS: BP 131/86; PULSE 116; RESP 16; TEMP 98.8
== END 2022-07-02 09:18 | disposition home or self-care (01) | DRG 773 ==
LOC: YASAS 12:12 → Y3N 15:10
PROVIDERS: ADMIT Allergy & Immunology; ATTEND Surgery
PROC: HZ2ZZZZ Detoxification Services for Substance Abuse Treatment (ICD-10-PCS; principal; 2022-06-27)
DX: F11.23 Opioid dependence with withdrawal (principal); F13.230 Sedative, hypnotic or anxiolytic dependence with withdrawal, uncomplicated; F14.20 Cocaine dependence, uncomplicated; F12.20 Cannabis dependence, uncomplicated; F17.210 Nicotine dependence, cigarettes, uncomplicated; F19.24 Other psychoactive substance dependence with psychoactive substance-induced mood disorder; F41.9 Anxiety disorder, unspecified; F32.A Depression, unspecified; K21.9 Gastro-esophageal reflux disease without esophagitis; Z86.69 Personal history of other diseases of the nervous system and sense organs; Z88.8 Allergy status to other drugs, medicaments and biological substances; Z91.199 Patient's noncompliance with other medical treatment and regimen due to unspecified reason
CPT/HCPCS: 36415; 80053; 85027; 86780; 87811; C9803-CS; U0003; U0005